=== PATIENT | male | born 1995 | race Caucasian/White ===

== ENCOUNTER 2019-05-19 22:25 | Emergency (ER) | payer OTHER ==
[2019-05-19] MEDS ORDERED: Ondansetron 4 MG/2 ML SDV IVPUSH ONE (22:40)
[2019-05-19] MEDS ORDERED: Sodium Chloride 0.9% 10 ML Syringe FLUSH PRN (22:44)
--- NOTE | 2019-05-19 23:04 | EDM.PDOC ---
ED HPI GENERAL MEDICAL PROBLEM - General Chief Complaint: General Stated Complaint: INTOXICATED Time Seen by Provider: 05/19/19 22:40 Source of Information: Reports: Patient History Limitations: Reports: No Limitations - History of Present Illness INITIAL COMMENTS - FREE TEXT/NARRATIVE: Adrián comes into [facility] ED by EMS following ingestion of an unknown quantity of ETOH beginning at 7:30 pm this evening. After several drinks, he developed tremors, delirium, and subsequent episodes of vomiting of partially digested food and beverages. He denies abdominal pain, headache, dizziness, hallucinations, or haun confusion. Upon arrival, he was awake, alert, and wretching. An IV access was established in the RUE, and he was adminstered Zofran 8 mg IV with subsequent improvement in sxs. He denies illicit drug abuse. There is a remote hx of seizures about 3 years ago. - Related Data Allergies Allergy/AdvReac Type Severity Reaction Status Date / Time No Known Allergies Allergy Verified 05/19/19 22:29 Home Meds: Home Meds Escitalopram [Lexapro] 20 mg PO BEDTIME 05/19/19 [History] Past Medical History Neurological History: Reports: Seizure, Other (See Below) Other Neuro History: Has not had a seizure in 3 years. Psychiatric History: Reports: Anxiety, Depression, Panic Attack - Past Surgical History HEENT Surgical History: Reports: Oral Surgery Social & Family History - Tobacco Use Smoking Status *Q: Former Smoker Used Tobacco, but Quit: Yes Month/Year Tobacco Last Used: 2017 - Recreational Drug Use Recreational Drug Use: No ED ROS GENERAL - Review of Systems Review Of Systems: ROS reveals no pertinent complaints other than HPI. ED EXAM, GENERAL - Physical Exam Exam: See Below Exam Limited By: No Limitations General Appearance: Alert, WD/WN, No Apparent Distress Eye Exam: Bilateral Eye: EOMI, Normal Inspection, PERRL Ears: Normal External Exam Nose: Normal Inspection Throat/Mouth: Normal Inspection, Normal Lips, Normal Gums, Normal Oropharynx, Normal Voice, No Airway Compromise Head: Normocephalic Neck: Normal Inspection, Supple, Non-Tender Respiratory/Chest: Lungs Clear, Normal Breath Sounds Cardiovascular: Normal Peripheral Pulses, Regular Rate, Rhythm, No Murmur GI/Abdominal: Normal Bowel Sounds, Soft, Non-Tender, No Organomegaly, No Distention, No Mass (Male) Exam: Deferred Rectal (Males) Exam: Deferred Back Exam: Normal Inspection Extremities: Normal Inspection Neurological: Alert, Oriented, CN II-XII Intact, Normal Cognition, No Motor/ Sensory Deficits Psychiatric: Normal Affect, Anxious Skin Exam: Warm, Dry, Intact, Normal Color Lymphatic: No Adenopathy Course - Vital Signs Text/Narrative:: Adrián remained stable at the [facility] ED. Screening labs were baseline, with BA 0.15 consistent with intoxication. Last Recorded V/S: Last Vital Signs Temp 36.4 C 05/19/19 22:25 Pulse 98 05/19/19 22:25 Resp 13 05/19/19 22:25 BP 147/94 H 05/19/19 22:25 Pulse Ox 99 05/19/19 22:25 - Orders/Labs/Meds Orders: Active Orders 24 hr Category Date Time Status DRUG SCREEN, URINE ALERE [URCHEM] Stat Lab 05/19/19 22:44 Ordered Sodium Chloride 0.9% [Saline Flush] Med 05/19/19 22:44 Active 10 ml FLUSH ASDIRECTED PRN Peripheral IV Insertion Adult [OM.PC] Routine Oth 05/19/19 22:44 Ordered Medication Orders Sodium Chloride (Saline Flush) 10 ml FLUSH ASDIRECTED PRN PRN Reason: Keep Vein Open Last Admin: 05/19/19 22:48 Dose: 10 ml Labs: Laboratory Tests 05/19/19 05/19/19 05/19/19 Range/Units 23:00 23:00 23:00 WBC 12.3 H (4.5-12.0) X10-3/uL RBC 5.14 (4.30-5.75) x10(6)uL Hgb 15.7 (13.5-17.8) g/dL Hct 46.0 (30.0-51.3) % MCV 89.6 (80-96) fL MCH 30.6 (27.7-33.6) pg MCHC 34.2 (32.2-35.4) g/dL RDW 12.7 (11.5-15.5) % Plt Count 264 (125-369) X10(3)uL MPV 7.9 (7.4-10.4) fL Neut % (Auto) 76.5 (46-82) % Lymph % (Auto) 16.9 (13-37) % Carroll % (Auto) 5.0 (4-12) % Eos % (Auto) 1 (1.0-5.0) % Baso % (Auto) 1 (0-2) % Neut # (Auto) 9.4 H (1.6-8.3) # Lymph # (Auto) 2.1 (0.6-5.0) # Carroll # (Auto) 0.6 (0.0-1.3) # Eos # (Auto) 0.1 (0.0-0.8) # Baso # (Auto) 0.1 (0.0-0.2) # Sodium 142 (135-145) mmol/L Potassium 3.4 L (3.5-5.3) mmol/L Chloride 104 (100-110) mmol/L Carbon Dioxide 23 (21-32) mmol/L BUN 10 (7-18) mg/dL Creatinine 1.0 (0.70-1.30) mg/dL Est Cr Clr Drug Dosing 102.79 mL/min Estimated GFR (MDRD) > 60 (>60) BUN/Creatinine Ratio 10.0 (9-20) Glucose 121 H (80-116) mg/dL Calcium 8.6 (8.6-10.2) mg/dL Ethyl Alcohol 0.15 H* (<0.03) % Meds: Medications Generic Name Dose Route Start Last Admin Trade Name Freq PRN Reason Stop Dose Admin Sodium Chloride 10 ml 05/19/19 22:44 05/19/19 22:48 Saline Flush FLUSH 10 ml ASDIRECTED PRN Administration Keep Vein Open Discontinued Medications Generic Name Dose Route Start Last Admin Trade Name Freq PRN Reason Stop Dose Admin Ondansetron HCl 8 mg 05/19/19 22:40 05/19/19 22:48 Zofran IVPUSH 05/19/19 22:41 8 mg ONETIME ONE Administration Departure - Departure Time of Disposition: 23:33 Disposition: Home, Self-Care 01 Condition: Fair Clinical Impression: Acute alcoholic intoxication Qualifiers: Complication of substance-induced condition: uncomplicated Qualified Code(s): F10.920 - Alcohol use, unspecified with intoxication, uncomplicated - Discharge Information *PRESCRIPTION DRUG MONITORING PROGRAM REVIEWED*: Not Applicable *COPY OF PRESCRIPTION DRUG MONITORING REPORT IN PATIENT [place]: Not Applicable Referrals: PCP,None [Primary Care Provider] - Forms: ED Department Discharge - Problem List & Annotations (1) Acute alcoholic intoxication SNOMED Code(s): 02665835, 36690893 Code(s): F10.929 - ALCOHOL USE, UNSPECIFIED WITH INTOXICATION, UNSPECIFIED Status: Acute Annotation/Comment:: Advised hydration and rest, and abstinence. Qualifiers: Complication of substance-induced condition: uncomplicated Qualified Code(s ): F10.920 - Alcohol use, unspecified with intoxication, uncomplicated - Problem List Review Problem List Initiated/Reviewed/Updated: Yes - My Orders Last 24 Hours: My Active Orders 05/19/19 22:44 DRUG SCREEN, URINE ALERE [URCHEM] Stat Sodium Chloride 0.9% [Saline Flush] 10 ml FLUSH ASDIRECTED PRN Peripheral IV Insertion Adult [OM.PC] Routine - Assessment/Plan Last 24 Hours: My Active Orders 05/19/19 22:44 DRUG SCREEN, URINE ALERE [URCHEM] Stat Sodium Chloride 0.9% [Saline Flush] 10 ml FLUSH ASDIRECTED PRN Peripheral IV Insertion Adult [OM.PC] Routine Plan: Follow up with PCP if needed.
== END 2019-05-19 23:35 | disposition home or self-care (01) ==
LOC: FB.ED 22:25
DX: F10.920 Alcohol use, unspecified with intoxication, uncomplicated (principal); Z87.891 Personal history of nicotine dependence; Y90.6 Blood alcohol level of 120-199 mg/100 ml
CPT/HCPCS: 36415; 80048; 85025; 96374; 99284; G0480; J2405; 99283